=== PATIENT | female | born 1950 | race Caucasian/White ===

== ENCOUNTER → 2021-07-18 15:31 | Outpatient (CLI) | payer MEDICARE, OTHER, SELFPAY ==
--- NOTE | 2021-07-18 15:36 | DI.MRI.S_ITS ---
PROCEDURE: MR SHOULDER RT WO CON INDICATIONS: Pain in right shoulder TECHNIQUE: Noncontrast oblique coronal T2 fast spin echo with fat saturation, oblique sagittal T1 spin echo and T2 fast spin echo with fat saturation, axial T1 spin echo and T2 fast spin echo with fat saturation through the shoulder. COMPARISON: None. FINDINGS: Degraded by motion artifact. Rotator cuff: Supraspinatus tendinopathy and thickening. There is low-grade bursal surface fraying and partial thickness articular sided tear. No full-thickness defect identified. Infraspinatus tendinopathy and thickening. The teres minor tendon appears intact. Severe subscapularis tendinopathy and interstitial tearing with partial thickness articular and bursal sided tear. No definite atrophy of the rotator cuff muscles. Bones and bursae: No bone marrow contusions or fractures. Moderate acromioclavicular joint degeneration. Acromion demonstrates conventional anatomy, without an os acromiale. Mild subacromial-subdeltoid bursitis. Capsule and soft tissues: Labrum: Circumferential labral tear and or advanced degeneration. There is diffuse mild to moderate partial thickness glenohumeral chondral loss. Is Glenohumeral ligaments: Inferior and superior glenohumeral ligaments are intact. Biceps tendon: Tendinopathy noted without complete rupture. Rotator interval: Partial obliteration of the subcoracoid fat signal intensity. Coracohumeral ligament: Intact. IMPRESSION: Partial-thickness rotator cuff tear as above. Mild subacromial-subdeltoid bursitis Circumferential labral tear which is likely chronic/degenerative. Glenohumeral and acromioclavicular joint degeneration. Dictated by: Cyril Julian M.D. on 07/18/2021 at 16:50 Approved by: Cyril Julian M.D. on 07/18/2021 at 17:06
== END ==
PROVIDERS: PCP Internal Medicine; Referring Provider Orthopaedic Surgery Foot and Ankle Surgery; Visit Provider Orthopaedic Surgery Foot and Ankle Surgery
DX: M25.511 Pain in right shoulder (principal); M75.111 Incomplete rotator cuff tear or rupture of right shoulder, not specified as traumatic; M19.011 Primary osteoarthritis, right shoulder; M75.51 Bursitis of right shoulder; S43.491A Other sprain of right shoulder joint, initial encounter
CPT/HCPCS: 73221

== ENCOUNTER → 2022-03-24 15:06 | Outpatient (CLI) | payer MEDICARE, OTHER, SELFPAY ==
--- NOTE | 2022-03-24 15:09 | DI.CT.S_ITS ---
PROCEDURE: CT CHEST WO CON INDICATIONS: Solitary pulmonary nodule TECHNIQUE: Noncontrast 2.0-2.5 mm thick sections acquired from the pulmonary apices to the posterior costophrenic angles. 7 mm thick axial MIP and 5 mm coronal and sagittal reformats were then acquired. A low radiation dose technique was utilized. COMPARISON: None. FINDINGS: Image quality: Diagnostic, given the low radiation dose technique. Lungs and pleura: No acute airspace opacities. Mild platelike atelectasis is present at the left lung base. No pulmonary nodules. No pleural effusion or pneumothorax. Mediastinum: Heart size is normal. No pericardial effusion. No mediastinal adenopathy by size criteria. Thoracic aorta and central pulmonary arteries are normal in size. Scattered atheromatous calcifications are present within the aortic arch. Esophagus is normal in caliber. No hiatal hernia. Bones and chest wall: No suspicious bony lesions. No vertebral body compression fractures. No axillary or supraclavicular adenopathy by size criteria. Thyroid gland is unremarkable . Abdomen: Visualized upper abdomen solid organs and bowel loops appear normal in the absence of contrast. IMPRESSION: No acute airspace opacities or pulmonary nodules. Fleischner Society criteria for SOLID lung nodule followup. Nodule size (mm)Low-risk patientHigh-risk patient<6 (single or multiple)No routine followup.Optional CT at 12 months. 6-8 (single or multiple)CT at 6-12 months, then optional CT at 18-24 mo.CT at 6-12 months, then CT at 18-24 months. >8 (single)CT at 3 months, PET-CT, or biopsy. Same as for low-risk pts. >8 (multiple)CT at 3-6 months, then optional CT at 18-24 mo.CT at 3-6 months, then CT at 18-24 months. Fleischner Society criteria for SUB-SOLID lung nodule followup. Solitary pure ground-glass nodules<6 mm (ground glass or part solid)No followup needed. 6 mm or larger (ground glass)CT at 6-12 months to confirm persistence, then CT every 2 years until 5 years.6 mm or larger (part solid)CT at 3-6 months to confirm persistence, then annual CT until 5 years if unchanged and solid component remains <6 mm. Multiple sub-solid nodules<6 mmCT at 3-6 months, then CT consider at 2 & 4 years for high risk patients. [address] at 3-6 months. Subsequent management based on most suspicious lesions. Recommendations do not apply to lung cancer screening, patients with immunosuppression, or patients with known primary cancer. Dictated by: Tigist Avelar M.D. on 03/24/2022 at 17:11 Approved by: Tigist Avelar M.D. on 03/24/2022 at 17:14
== END ==
PROVIDERS: PCP Internal Medicine; Referring Provider Student in an Organized Health Care Education/Training Program; Visit Provider Student in an Organized Health Care Education/Training Program
DX: R91.1 Solitary pulmonary nodule (principal)
CPT/HCPCS: 71250

== ENCOUNTER 2024-06-24 10:25 | Emergency (ER) | payer MEDICARE, OTHER, SELFPAY ==
[2024-06-24 10:30] VITALS: BP 132/78; PULSE 78; RESP 14; O2SAT 99; BMI 21.4
--- NOTE | 2024-06-24 11:42 | ED_ITS ---
HPI - Animal Bite General Chief Complaint: Animal Bite Stated Complaint: Got Stung By something in back of head Time Seen by Provider: 06/24/24 11:08 Source: patient Mode of arrival: Ambulatory History of Present Illness HPI narrative: Patient here for exposure to a possible bat bite. This occurred about 5 days ago in her yd at 6 in the morning. Denies any fever chills drooling cough cold congestion body aches chills arthralgia myalgia. No redness to the skin. Related Data Home Medications Medication Instructions Recorded Confirmed albuterol sulfate 90 mcg/actuation 1 puff INH ##8.5 06/19/13 aerosol inhaler (Proventil HFA) fluticasone propionate 220 1 spray INH BID #0 puffs 06/19/13 mcg/actuation HFA aerosol inhaler (Flovent HFA) ipratropium 0.5 mg-albuterol 3 mg 3 ml INH ##0 06/19/13 (2.5 mg base)/3 mL nebulization soln levothyroxine 112 mcg tablet 112 mcg PO DAILY 06/24/24 06/24/24 rosuvastatin 10 mg tablet 20 mg PO DAILY 06/24/24 06/24/24 Allergies Allergy/AdvReac Type Severity Reaction Status Date / Time codeine Allergy Unknown Verified 06/24/24 10:34 erythromycin base Allergy Unknown Verified 06/24/24 10:38 ibuprofen Allergy Unknown Verified 06/24/24 10:38 Penicillins Allergy Unknown Verified 06/24/24 10:38 Sulfa (Sulfonamide Allergy Unknown Verified 06/24/24 10:38 Antibiotics) Review of Systems Review of Systems Narrative: GENERAL: negative chills, fatigue, malaise, fever, sweats. HEENT: negative sinus pain, ear pain, sore throat RESPIRATORY: negative dyspnea, cough CARDIOVASCULAR: negative chest pain, palpitations GASTROINTESTINAL: negative nausea, vomiting, abdominal pain : negative dysuria, frequency, hematuria MUSCULOSKELETAL: negative muscle or bony pain SKIN: negative rash, skin lesions, positive skin injury NEUROLOGIC: negative weakness, numbness Patient History Medical History (Updated 06/24/24 @ 12:06 by Ken Coronel MD) Asthma Social History Smoking Status: Former smoker Smoking Status: Former smoker alcohol intake frequency: 0-2 drinks per day Substance Use Type: does not use Exam Narrative Exam Narrative: GENERAL: in no distress, not toxic not dyspneic HEAD: Normocephalic. EYES: Pupils equal round ENT: Mucous membranes moist. NECK: Trachea midline. Posterior neck left upper neck area where patient states she was bit. There is no bite alcon no erythema edema no abscess no induration no red streaking nontender. No nuchal rigidity. No meningeal signs. Full active range of motion without any pain. CARDIOVASCULAR: Regular rate and rhythm RESPIRATORY: Clear to auscultation. Breath sounds equal bilaterally. No wheezes, rales, or rhonchi. BACK: No flank tenderness. NEURO: AOx4. Clear speech SKIN: Warm and dry PSYCH: Not anxious, is cooperative Initial Vital Signs Initial Vital Signs: Vital Signs Pulse Rate 78 06/24/24 10:30 Respiratory Rate 14 06/24/24 10:30 Blood Pressure 132/78 06/24/24 10:30 Pulse Oximetry 99 06/24/24 10:30 Oxygen Delivery Method Room Air 06/24/24 10:30 Course Orders Ordered: Discontinued Medications Diphtheria/Tetanus/Acell Pertussis (Tet,Diph,Pertuss(Acell),Vac/Pf 0.5 Ml Syringe) 0.5 ml IM .ONCE ONE Stop: 06/24/24 11:44 Last Admin: 06/24/24 12:29 Dose: 0.5 ml Documented By: SPF Rabies Immune Globulin (Rabies Immune Globulin 300 Unit/Ml 1ml Vial) 1,061 unit 20 unit/kg (1061 unit) IM NOW ONE Stop: 06/24/24 11:44 Last Admin: 06/24/24 12:38 Dose: 1,061 unit Documented By: SPF Rabies Vaccine (Rabies Vaccine (Rabavert) 2.5 Units Syringe) 2.5 units IM .ONCE ONE Stop: 06/24/24 11:44 Last Admin: 06/24/24 12:42 Dose: 2.5 units Documented By: SPF Vital Signs Vital signs: Vital Signs - 8 hr 06/24/24 10:30 06/24/24 13:16 Pulse Rate 78 67 Respiratory Rate 14 16 Blood Pressure 132/78 126/63 Pulse Oximetry 99 100 Oxygen Delivery Method Room Air Room Air MDM - Animal Bite MDM Narrative Medical decision making narrative: Patient here for exposure to a possible bat bite. This occurred about 5 days ago in her yd at 6 in the morning. Denies any fever chills drooling cough cold congestion body aches chills arthralgia myalgia. No redness to the skin. After history and exam, exam is reassuring. At this time Tdap rabies immunoglobulin and rabies vaccine. Patient agrees for treatment plan. [facility] Medical records reviewed: No recent visit for this complaint Differential considered: Includes but not limited to bat bite bat exposure Lab Test results independently reviewed as above. Pertinent findings: None indicated at this time Independently reviewed EKG none indicated at this time Imaging studies independently reviewed: None indicated at this time Consultations: None indicated at this time Treatments: Tdap rabies vaccine/immunoglobulin Re-evaluations: Reviewed with patient exam findings and treatment plan patient does agree for rabies treatment and Tdap. Return precautions reviewed. Nontoxic at discharge. She desires discharge home. Discussion: Appropriate for discharge home. Rabies vaccine and immunoglobulin have been started. Tdap given. Skin exam is reassuring. Not toxic at discharge. Return precautions reviewed and she desires discharge home. Diagnosis: Rabies exposure Discharge Plan Departure Patient Disposition: Home Clinical Impression: Rabies exposure, Bat bite wound Instructions: DI for Rabies Vaccine Activity Restrictions/Additional Instructions: You are being treated for possible rabies exposure. You have been given rabies vaccine and immunoglobulin here today as well as tetanus shot. You need to ret urn here 3 more times. You need to return for completion of the rabies vaccine. Please be here on June 27, July 01, and July 08. See family doctor next week for re-evaluation. Return if worse if any questions or concerns. Prescriptions: No Action fluticasone propionate [Flovent HFA] 12 GM HFA aerosol inhaler 1 spray INH BID Qty: 0 ipratropium-albuterol 3 ML solution for nebulization 3 ml INH Qty: 0 albuterol sulfate [Proventil HFA] 90 MCG/PUFF HFA aerosol inhaler 1 puff INH Qty: 8.5 levothyroxine 112 mcg tablet 112 mcg PO DAILY rosuvastatin 10 mg tablet 20 mg PO DAILY Referrals: Ken Salinas DO [Primary Care Provider] - Stand Alone Forms: Patient Portal/API
[2024-06-24] MEDS: TET,DIPH,PERTUSS(ACELL),VAC/PF 0.5 ML SYRINGE IM (12:29)
[2024-06-24] MEDS: RABIES IMMUNE GLOBULIN 300 UNIT/ML 1mL VIAL 1061 UNIT IM (12:38)
[2024-06-24] MEDS: RABIES VACCINE (RABAVERT) 2.5 UNITS SYRINGE IM (12:42)
[2024-06-24 13:16] VITALS: BP 126/63; PULSE 67; RESP 16; O2SAT 100
== END 2024-06-24 12:00 | disposition home or self-care (01) ==
PROVIDERS: Emergency Provider Emergency Medicine; PCP Family Medicine
DX: Z20.3 Contact with and (suspected) exposure to rabies (principal); W55.81XA Bitten by other mammals, initial encounter; Z23 Encounter for immunization
CPT/HCPCS: 90375; 90471; 90675; 96372; 99283; 90715

== ENCOUNTER 2024-06-27 11:56 | Emergency (ER) | payer MEDICARE, OTHER, SELFPAY ==
[2024-06-27 11:57] VITALS: BP 127/70; PULSE 70; RESP 14; TEMP 36.5; O2SAT 99
[2024-06-27] MEDS: RABIES VACCINE (RABAVERT) 2.5 UNITS SYRINGE 1 UNITS IM (13:23)
--- NOTE | 2024-06-27 13:23 | PC.NURSE ---
Addendum entered by Talat Lance R.N. 06/27/24 13:26: Physical written order from Provider Daysi Saenz placed in medical records box. Original Note: 1323: As per written order from Provider Dany, Rabies vaccine (RabaAvert) 2.5 units, given IM in RIGHT deltoid. Lot: [id number] Exp: .
[2024-06-27 13:52] VITALS: BP 150/67; PULSE 63; RESP 18; O2SAT 100
--- NOTE | 2024-06-27 13:56 | ED_ITS ---
HPI - Recheck/Abnormal Lab/Rx <Daysi Saenz PA-C - Last Filed: 06/27/24 14:04> General Chief Complaint: Recheck/Abnormal Lab/Rx Stated Complaint: Rabies Shot Time Seen by Provider: 06/27/24 12:03 Source: patient Mode of arrival: Ambulatory History of Present Illness HPI narrative: 73-year-old female presents to the ED today for her 2nd shot of the rabies vaccine. Patient denies any symptoms, has felt well since the for shot. Related Data Home Medications Medication Instructions Recorded Confirmed albuterol sulfate 90 mcg/actuation 1 puff INH ##8.5 06/19/13 aerosol inhaler (Proventil HFA) fluticasone propionate 220 1 spray INH BID #0 puffs 06/19/13 mcg/actuation HFA aerosol inhaler (Flovent HFA) ipratropium 0.5 mg-albuterol 3 mg 3 ml INH ##0 06/19/13 (2.5 mg base)/3 mL nebulization soln levothyroxine 112 mcg tablet 112 mcg PO DAILY 06/24/24 06/24/24 rosuvastatin 10 mg tablet 20 mg PO DAILY 06/24/24 06/24/24 Allergies Allergy/AdvReac Type Severity Reaction Status Date / Time codeine Allergy Unknown Verified 06/27/24 09:27 erythromycin base Allergy Unknown Verified 06/27/24 09:27 ibuprofen Allergy Unknown Verified 06/27/24 09:27 Penicillins Allergy Unknown Verified 06/27/24 09:27 Sulfa (Sulfonamide Allergy Unknown Verified 06/27/24 09:27 Antibiotics) Review of Systems <Daysi Saenz PA-C - Last Filed: 06/27/24 14:04> Constitutional Constitutional: Denies chills, Denies fatigue, Denies fever(s), Denies frequent falls, Denies lethargy and Denies weakness Eyes Eyes: Denies change in vision, Denies eye discharge, Denies irritation and Denies loss of vision ENT Ears, Nose, Mouth, and Throat: Denies change in voice, Denies dizziness, Denies neck pain, Denies sore throat and Denies throat swelling Cardiovascular Cardiovascular: Denies chest pain, Denies irregular heart rhythm, Denies lighth eadedness, Denies palpitations, Denies dyspnea, Denies dyspnea on exertion and Denies orthopnea Respiratory Respiratory: Denies cough, Denies dyspnea, Denies dyspnea on exertion and Denies wheezing Gastrointestinal Gastrointestinal: Denies abdominal pain, Denies change in bowel habits, Denies diarrhea, Denies nausea and Denies vomiting Musculoskeletal Musculoskeletal: Denies neck pain and Denies numbness Integumentary/Breasts Skin/Breast: Denies pruritus, Denies erythema, Denies rash and Denies wounds Neurologic Neurologic: Denies behavioral changes, Denies confusion, Denies dizziness, Denies frequent falls, Denies loss of vision, Denies numbness and Denies weakness Psychiatric Psychiatric: Denies anxiety, Denies behavioral changes, Denies confusion, Denies depression, Denies homicidal ideation and Denies suicidal ideation Endocrine Endocrine: Denies fatigue, Denies flushing and Denies palpitations Hematologic/Lymphatic Hematologic/Lymphatic: Denies easy bruising Allergic/Immunologic Allergic/Immunologic: Denies urticaria, Denies throat swelling and Denies wheezing Patient History <Daysi Saenz PA-C - Last Filed: 06/27/24 14:04> Medical History Asthma Social History Smoking Status: Former smoker Smoking Status: Former smoker alcohol intake frequency: 0-2 drinks per day Substance Use Type: does not use Exam <Daysi Saenz PA-C - Last Filed: 06/27/24 14:04> Narrative Exam Narrative: Const General:?cooperative, healthy appearing and comfortable [facility] Head:?normal to inspection Ears:?hearing grossly normal bilaterally Nose:?external nose normal Face and sinus:?normal facial exam and sinuses nontender Mouth:?oral mucosae normal Throat:?posterior oropharynx normal Eyes General:?appearance normal, both eyes and all related structures Neck Neck:?normal visual inspection and no lymphadenopathy noted Resp Effort & Inspection:?normal respiratory effort Auscultation:?clear to auscultation bilaterally Cardio Rate:?regular rate Rhythm:?regular rhythm Neuro General:?patient alert, patient awake and patient oriented x3; neuro intact Initial Vital Signs Initial Vital Signs: Vital Signs Temperature 97.7 F 06/27/24 11:57 Pulse Rate 70 06/27/24 11:57 Respiratory Rate 14 06/27/24 11:57 Blood Pressure 127/70 06/27/24 11:57 Pulse Oximetry 99 06/27/24 11:57 Oxygen Delivery Method Room Air 06/27/24 11:57 <DO Victor Manuel Reynoso Last Filed: 06/27/24 14:29> Initial Vital Signs Initial Vital Signs: Vital Signs Temperature 97.7 F 06/27/24 11:57 Pulse Rate 70 06/27/24 11:57 Respiratory Rate 14 06/27/24 11:57 Blood Pressure 127/70 06/27/24 11:57 Pulse Oximetry 99 06/27/24 11:57 Oxygen Delivery Method Room Air 06/27/24 11:57 Course <Daysi Saenz PA-C - Last Filed: 06/27/24 14:04> Orders Ordered: Discontinued Medications Rabies Vaccine (Rabies Vaccine (Rabavert) 2.5 Units Syringe) 1 units IM .ONCE ONE Stop: 06/27/24 13:01 Vital Signs Vital signs: Vital Signs - 8 hr 06/27/24 11:57 06/27/24 13:52 Temperature 97.7 F Pulse Rate 70 63 Respiratory Rate 14 18 Blood Pressure 127/70 150/67 H Pulse Oximetry 99 100 Oxygen Delivery Method Room Air Room Air <DO Victor Manuel Reynoso Last Filed: 06/27/24 14:29> Orders Ordered: Discontinued Medications Rabies Vaccine (Rabies Vaccine (Rabavert) 2.5 Units Syringe) 1 units IM .ONCE ONE Stop: 06/27/24 13:01 Vital Signs Vital signs: Vital Signs - 8 hr 06/27/24 11:57 06/27/24 13:52 Temperature 97.7 F Pulse Rate 70 63 Respiratory Rate 14 18 Blood Pressure 127/70 150/67 H Pulse Oximetry 99 100 Oxygen Delivery Method Room Air Room Air MDM - Recheck/Abnormal Lab/Rx <GLENDA Mloina Last Filed: 06/27/24 14:04> MDM Narrative Medical decision making narrative: 73-year-old female presents to the ED today for her 2nd shot of the rabies vaccine. Patient appears asymptomatic. Second dose of the rabies vaccine was administered today. Patient counseled on returning to the ED for the next 2 doses on July 01 and July 08. Patient verbalized understanding. Medical records reviewed: Yes Discharge Plan Departure Patient Disposition: Home Clinical Impression: Rabies exposure Instructions: DI for Rabies Vaccine Activity Restrictions/Additional Instructions: You were evaluated in the ED today to obtain the 2nd dose of the rabies vaccine. You received the 2nd dose today. You have 2 more doses scheduled for July 01 and July 08. You may call the ED at [phone] prior to coming to ensure that we do have the vaccine available for you. Return to the ED if you note any signs of rabies. Prescriptions: No Action fluticasone propionate [Flovent HFA] 12 GM HFA aerosol inhaler 1 spray INH BID Qty: 0 ipratropium-albuterol 3 ML solution for nebulization 3 ml INH Qty: 0 albuterol sulfate [Proventil HFA] 90 MCG/PUFF HFA aerosol inhaler 1 puff INH Qty: 8.5 levothyroxine 112 mcg tablet 112 mcg PO DAILY rosuvastatin 10 mg tablet 20 mg PO DAILY Referrals: Ken Salinas DO [Primary Care Provider] - Stand Alone Forms: Patient Portal/API ED Sign-out <Abdi Tarango DO - Last Filed: 06/27/24 14:29> Cosign ED Attending Cosignature Attestation: Dr Tarango Co-Sign Statement: I was available for consultation during this patient's emergency department visit. This chart is signed by myself for administrative purposes only. I did not have direct contact with this patient during this visit. They were seen independently by the APC.
== END 2024-06-27 13:48 | disposition home or self-care (01) ==
PROVIDERS: Emergency Provider Student in an Organized Health Care Education/Training Program; PCP Family Medicine
DX: Z20.3 Contact with and (suspected) exposure to rabies (principal); Z23 Encounter for immunization
CPT/HCPCS: 90471; 90675; 99283